=== PATIENT | male | born 1970 | race Caucasian/White ===

== ENCOUNTER 2024-01-30 08:33 | Outpatient (CLI) | payer OTHER, SELFPAY ==
--- OUTSIDE RECORDS SUMMARY | 2024-01-30 08:39 | XMS_ITS | Encounter Summary ---
Author Organization [facility] Address [address], [place] [address] Care Team Providers Care Inspector Motor Vehicles Name Role Phone No Primary/Referring, Phy Primary Care Provider Unavailable Encounter Details Date Type Department Care Team (Late st Contact Info) Description 01/28/2019 Correspondence None No Primary/Referring, Phy TRAVEL CLINIC PAW Social History Tobacco Use Types Packs/Day Years Used Date Smoking Tobacco: Never Smokeless Tobacco: Former Alcohol Use Standard Drinks/Week Comments Yes 0 (1 standard drink = 0.6 oz pur e alcohol) Sex and Gender Information Value Date Recorded Sex Assigned at Not on file Gender Identity Not on file Sexual Orientation Not on file documented as of this encounter Plan of Treatment Not on file documented as of this encounter Visit Diagnoses Not on filedocumented in this encounter Care Teams Inspector Motor Vehicles Relationship Specialty Start Date End Date No Primary/Referring, Ruby PCP - General 03/03/13 documented as of this encounter
--- OUTSIDE RECORDS SUMMARY | 2024-01-30 08:39 | XMS_ITS | Clinical Summary ---
Author Organization [facility] Address [address] [place] [address] Care Team Providers Care Health Counselor Name Role Phone No Primary/Referring, Ruby Primary Care Provider Unavailable Source Comments You are receiving this document as you are listed as the primary care provider,follow-up provider, or the patient has been referred to you for consultation.This is in compliance with the Medicare and[facility] Incentive [facility],which states Providers who transition their patient to another setting of careor provider of care or refers their patient to another provider of care shouldprovide summary care record for each transition of care or referral. [facility] Allergies No known active allergies Medications Medication Sig Dispensed Refills Start Date End Date Status azithromycin (ZITHROMAX) 500 MG tabletIndications:Coun seling for travel Take 1 Tablet by mouth daily. For 1-3 days for severe diarrhea. 3 Tablet 01/28/2019 Active Active Problems No known active problems Immunizations Name Administration Dates Next Due HepA Adult (19+ yrs) 02/28/2016,03/03/2013 HepB Adult (Engerix-B, 20+ y rs, 3 dose series) 02/28/2016,08/12/2013,03/03/2013 Influenza IIV4 (Quadrivalent ) 0.5mL (27938) 02/26/2018,02/27/2017,03/03/2013 Influenza, Unspecified Formulation 03/31/2015, Tdap 01/28/2019 Typhoid (Typhim Vi, IM) 01/28/2019,02/28/2016, Varicella 03/03/2013(Deferred: Immune by Jazmine mojica) Social History Tobacco Use Types Packs/Day Years Used Date Smoking Tobacco: Never Smokeless Tobacco: Former Alcohol Use Standard Drinks/Week Comments Yes 0 (1 standard drink = 0.6 oz pur e alcohol) Sex and Gender Information Value Date Recorded Sex Assigned at Not on file Gender Identity Not on file Sexual Orientation Not on file Last Filed Vital Signs Vital Sign Reading Time Taken Comments Blood Pressure 125/77 01/28/2019 8:20 AM CDT Pulse 64 01/28/2019 8:20 AM CDT Temperature 36.9 ??C (98.4 ??F) 02/28/2016 3:00 PM CD T Respiratory Rate 12 01/28/2019 8:20 AM CDT Oxygen Saturation - - Inhaled Oxygen Concentration - - Weight 89.4 kg (197 lb) 01/28/2019 8:20 AM CDT Height 177.8 cm (5' 10) 01/28/2019 8:20 AM CDT Body Mass Index 28.27 01/28/2019 8:20 AM CDT Plan of Treatment Health Maintenance Due Date Last Done Comments Colon Cancer Screening Plan Due 1972 Hep C Screening (Preventive Services) 1972 PSA Screening Discussion 1972 HIV Screening (Preventive Services) 1988 Adult Preventive Visit 1990 Cholesterol 08/23/2007 Zoster/Shingles (1 of 2) 2022 COVID-19 Vaccine ( season) 2023 Influenza (#1) 2024 02/26/2018, 02/03, 03/31/2015, Additional history exists DTaP/Tdap/Td (2 - Tdap) 01/28/2029 01/28/2019 HepA Aged Out 02/28/2016, 03/03/2013 No lo nger eligible based on patient's age to complete this topic HepB Completed 02/28/2016, 08/02, 03/03/2013 Hib Aged Out No longer eligi ble based on patient's age to complete this topic IPV (Polio) Aged Out No longer eligi ble based on patient's age to complete this topic MCV4 Aged Out No longer eligi ble based on patient's age to complete this topic Pneumococcal Aged Out No longer eligi ble based on patient's age to complete this topic Care Teams Health Counselor Relationship Specialty Start Date End Date No Primary/Referring, Phy PCP - General 03/03/13
--- OUTSIDE RECORDS SUMMARY | 2024-01-30 08:39 | XMS_ITS | Encounter Summary ---
Author Organization [facility] Address [address] [address] Care Team Providers Care Program Architect Name Role Phone No Primary/Referring, Phy Primary Care Provider Unavailable Encounter Details Date Type Department Care Team (Late st Contact Info) Description 02/28/2016 Correspondence Travel and Tropical Medicine [address] [facility] [place] [address] Olga Parra, TUMBLER DYEING MACHINE OPERATOR, TECHNOLOGIST DEVELOPMENT [address] [place] [address] TRAVEL CLINIC PAYMENT AGREEMENT WAIVER Social History Tobacco Use Types Packs/Day Years [...] on filedocumented in this encounter Care Teams Program Architect Relationship Specialty Start Date End Date No Primary/Referring, Ruby PCP - General 03/03/13 documented as of this encounter
== END 2024-01-30 08:34 | disposition home or self-care (01) ==
PROVIDERS: PCP Registered Nurse; Visit Provider Registered Nurse
DX: Z00.00 Encounter for general adult medical examination without abnormal findings (principal); Z13.6 Encounter for screening for cardiovascular disorders; Z13.0 Encounter for screening for diseases of the blood and blood-forming organs and certain disorders involving the immune mechanism; Z12.5 Encounter for screening for malignant neoplasm of prostate
CPT/HCPCS: 80048; 80061; G0103

== ENCOUNTER 2024-02-11 09:47 | Outpatient (CLI) | payer OTHER, SELFPAY ==
--- OUTSIDE RECORDS SUMMARY | 2024-02-11 09:49 | XMS_ITS | Encounter Summary ---
[facility] Address [address] [address] Care Team Providers Care Monitor Worker Name Role Phone No Primary/Referring, Phy Primary Care Provider Unavailable Encounter Details Date Type Department Care Team (Late st Contact Info) Description 02/28/2016 Correspondence Travel and Tropical Medicine [address] [facility] [place] [address] Olga Parra, YARDMASTER, MANAGER GENERAL [address] [place] [address] TRAVEL CLINIC PAYMENT AGREEMENT WAIVER [...] on filedocumented in this encounter Care Teams Monitor Worker Relationship Specialty Start Date End Date No Primary/Referring, Ruby PCP - General 03/03/13 documented as of this encounter
--- OUTSIDE RECORDS SUMMARY | 2024-02-11 09:49 | XMS_ITS | Clinical Summary ---
Author Organization [facility] Address [address] [place] [address] Care Team Providers Care Email Manager Name Role Phone No Primary/Referring, Ruby Primary Care Provider Unavailable Source Comments You are receiving this document as you are listed as the primary care provider,follow-up provider, or the patient has been referred to you for consultation.This is in compliance with the Medicare and[facility] E[facility] Incentive Program,which states Providers who transition their patient to another setting of careor provider of care or refers their patient to another provider of care shouldprovide summary care record for each transition of care or referral. [facility] Allergies No known active allergies Medications Medication [...] series) 02/28/2016,08/12/2013,03/03/2013 Influenza IIV4 (Quadrivalent ) 0.5mL (03906) 02/26/2018,02/27/2017,03/03/2013 Influenza, Unspecified Formulation 03/31/2015, Tdap 01/28/2019 [...] of 2) 2022 COVID-19 Vaccine ( season) 2024 Influenza (#1) 2024 02/26/2018, 02/03, 03/31/2015, Additional [...] age to complete this topic Care Teams Email Manager Relationship Specialty Start Date End Date No Primary/Referring, Phy PCP - General 03/03/13
--- OUTSIDE RECORDS SUMMARY | 2024-02-11 09:49 | XMS_ITS | Encounter Summary ---
[facility] Address [address], [place] [address] Care Team Providers Care Field Reviewer Name Role Phone No Primary/Referring, Phy Primary [...] on filedocumented in this encounter Care Teams Field Reviewer Relationship Specialty Start Date End Date No Primary/Referring, Ruby PCP - General 03/03/13 documented as of this encounter
--- NOTE | 2024-02-11 10:42 | W.ANESCHARGE ---
Anesthesia Charges Start Date/Time Anesthesia Start Date: 02/11/24 Anesthesia Start Time: 10:20 Stop Date/Time Anesthesia Stop Date: 02/11/24 Anesthesia Stop Time: 10:43
--- NOTE | 2024-02-11 10:45 | W.ANESCHARGE ---
Anesthesia Charges Start Date/Time Anesthesia Start Date: 02/11/24 Anesthesia Start Time: 10:20 Stop Date/Time Anesthesia Stop Date: 02/11/24 Anesthesia Stop Time: 10:43
== END 2024-02-11 09:48 | disposition home or self-care (01) ==
PROVIDERS: PCP Registered Nurse; Visit Provider Internal Medicine
DX: Z12.11 Encounter for screening for malignant neoplasm of colon (principal)
CPT/HCPCS: 00811; 00812; 45378; J2704

== ENCOUNTER 2024-08-13 10:27 | Outpatient (CLI) | payer OTHER, SELFPAY ==
--- NOTE | 2024-08-13 10:45 | CRLHL7_ITS ---
For Patients: As a result of the Century Cures Act, medical imaging exams and procedure reports are released immediately into your electronic medical record. You may view this report before your referring provider. If you have questions, please contact your health care provider. Indication: localized left/lateral area of tenderness and lump Technique: Grayscale and color Doppler ultrasound of the left abdominal wall performed in the area of concern. Comparison: None Findings: There is an isoechoic structure within the subcutaneous fat without internal vascularity measuring 5.3 x 0.8 x 5.9 cm. No shadowing lesion or fluid collection. Impression: Subcutaneous lipoma measures 5.3 x 0.8 x 5.9 cm. Dictated by Terry East MD @ 08/13/2024 1:02:47 PM (Electronically Signed)
== END 2024-08-13 10:28 | disposition home or self-care (01) ==
LOC: US 10:28
PROVIDERS: PCP Registered Nurse; Visit Provider Registered Nurse
DX: R19.02 Left upper quadrant abdominal swelling, mass and lump (principal); D17.1 Benign lipomatous neoplasm of skin and subcutaneous tissue of trunk
CPT/HCPCS: 76705